=== PATIENT | female | born 1970 | race African-American/Black ===

== ENCOUNTER 2017-06-12 15:10 | Inpatient (IN) | payer BC, OTHER ==
[~2017-06-12] VITALS: Ht 165.1 cm; Wt 83.9 kg
--- NOTE | ~2017-06-12 | EKG ---
[place] [address] [facility] [employer] [address] ELECTROCARDIOGRAM REPORT Name: JAMIR DAWKINS Room #: 427-P [facility] IN M.R.#: [id number] Admission: 06/12/17 Attend Phys: Calvin Blandon Discharge: 06/14/17 Date of : 72 Report #: [id number] THIS REPORT FOR: //name// [facility] ED Test Date: 2017-06-12 Test Time: 15:46:25 Pat Name: JAMIR DAWKINS Department: Room: 427 Gender: F Corporate Controller: BIJU : 1970 Requested By: Jay Samuel Order Number: [id number] MD: Bipin Brand Measurements Intervals Elliott Rate: 117 P: 17 AR: 140 QRS: 60 QRSD: 81 T: 11 QT: 349 QTc: 487 Interpretive Statements Sinus tachycardia RSR' in V1 or V2; cannot rule out Brugada syndrome Borderline prolonged QT interval Baseline wander in lead(s) II,III,aVL,aVF,V3 No previous ECG available for comparison Electronically Signed On 06-15-2017 7:18:27 CDT by Bipin Brand [email or web address] <ELECTRONICALLY SIGNED> By: Bipin Brand MD, [facility] 06/15/17 0718 [id number] Bipin Brand MD, [facility] /EPI
[2017-06-12 15:26] VITALS: BP 113/71
[2017-06-12 15:53] LABS: ABSOLUTE NEUTROPHILS 6.7 thou/uL (1.4-8.2); BASOPHILS 0.3 % (0.0-2.0); HEMATOCRIT 33.6 % (37.0-47.0); HEMOGLOBIN 11.8 gm/dL (12.0-15.0); LYMPHOCYTES 9.2 % (24.0-44.0); MCH 28.3 pg (26.0-34.0); MCHC 35.1 g/dL (28.0-37.0); MCV 80.6 fL (80.0-100.0); MONOCYTES 7.7 % (1.0-8.0); PLATELET COUNT 125 thou/uL (150-400); POLYS 82.8 % (36.0-66.0); RBC 4.16 mil/uL (4.20-5.00); RDW 15.6 % (10.5-14.5); WBC 8.1 thou/uL (4.0-11.0)
[2017-06-12 15:53] LABS: URINE BLOOD 3+ (Negative); URINE CLARITY CLOUDY; URINE COLOR YELLOW; URINE GLUCOSE-RANDOM* NEGATIVE (Negative); URINE KETONES 1+ (Negative); URINE LEUKOCYTES 1+ (Negative); URINE NITRITE NEGATIVE (Negative); URINE PROTEIN (DIPSTICK) 2+ (Negative); URINE SPECIFIC GRAVITY 1.025 (1.005-1.035)
[2017-06-12 15:59] LABS: ICTOTEST (BILI CONFIRMATORY) Negative (Negative); URINE BILIRUBIN NEGATIVE (Negative)
[2017-06-12 16:00] LABS: SQUAMOUS >10 Many /LPF (0-3)
[2017-06-12 16:01] LABS: AMORPHOUS URATES Moderate /LPF (None Seen); BACTERIA 1-9 Few /HPF (None Seen); CASTS None Seen /LPF (None Seen); URINE RBC 0-2 Rare /HPF (0-2); URINE WBC 6-15 Few /HPF (0-5)
[2017-06-12 16:01] LABS: CALCIUM 8.4 mg/dL (8.5-10.1); CREATININE 1.8 mg/dL (0.6-1.0)
[2017-06-12 16:03] LABS: POTASSIUM 2.6 mmol/L (3.5-5.1)
[2017-06-12 16:06] LABS: ALBUMIN 2.7 g/dL (3.4-5.0); TOTAL BILIRUBIN 1.7 mg/dL (<0.1-1.0); TOTAL PROTEIN 7.1 g/dL (6.4-8.2)
[2017-06-12 17:10] LABS: CHOLESTEROL 164 mg/dL (<200); HDL CHOLESTEROL 13 mg/dL (>40); LDL CHOLESTEROL 106 mg/dL (<100); TC:HDL 12.6 Ratio (Not establshd); TRIGLYCERIDE 225 mg/dL (<150); VLDL 45 mg/dL (<40)
[2017-06-12 17:13] LABS: SERUM ASSESSMENT Clear
[2017-06-12 17:36] LABS: TSH 0.929 uIU/mL (0.358-3.740)
[2017-06-12 18:00] VITALS: BP 94/58
[2017-06-12 18:47] VITALS: BP 94/58
[2017-06-12 20:00] VITALS: BP 106/66
[2017-06-13 04:30] VITALS: BP 106/68
[2017-06-13 05:58] LABS: HEMATOCRIT 30.2 % (37.0-47.0); HEMOGLOBIN 10.5 gm/dL (12.0-15.0); MCH 28.7 pg (26.0-34.0); MCV 82.2 fL (80.0-100.0); RBC 3.67 mil/uL (4.20-5.00); WBC 6.7 thou/uL (4.0-11.0)
[2017-06-13 06:04] LABS: CALCIUM 7.8 mg/dL (8.5-10.1); CREATININE 1.4 mg/dL (0.6-1.0); POTASSIUM 3.1 mmol/L (3.5-5.1)
[2017-06-13 06:10] LABS: ALBUMIN 2.1 g/dL (3.4-5.0); MAGNESIUM 2.7 mg/dL (1.8-2.4); PHOSPHORUS 2.6 mg/dL (2.5-4.9); TOTAL PROTEIN 6.1 g/dL (6.4-8.2)
[2017-06-13 07:12] VITALS: BP 86/56
[2017-06-13 07:55] VITALS: BP 105/76
[2017-06-13 09:10] LABS: HAV IgM AB (ANTI-HAV IgM) Negative (Negative); HEPATITIS B SURFACE AG Negative (Negative); HEPATITIS C VIRUS AB <0.1 (0.0-0.9)
[2017-06-13 13:30] LABS: % SATURATION 10 % (20-39); IRON 25 ug/dL (50-170); TIBC 243 ug/dL (250-450)
[2017-06-13 13:44] VITALS: BP 105/76
[2017-06-13 15:25] VITALS: BP 121/82
[2017-06-13] MEDS ORDERED: CEFUROXIME250 MG PO (16:18)
[2017-06-13 20:07] LABS: IgG 710 mg/dL (700-1600)
[2017-06-13 20:51] VITALS: BP 116/72
[2017-06-14 05:31] VITALS: BP 106/73
[2017-06-14 07:15] VITALS: BP 106/80
[2017-06-14] MEDS ORDERED: CEFUROXIME250 MG PO (09:52)
[2017-06-14] MEDS ORDERED: HYDROCODONE-AP1 EAC6 PO (09:52)
[2017-06-14 13:09] LABS: CERULOPLASMIN 45.7 mg/dL (19.0-39.0)
[2017-06-15 09:09] LABS: ANA INTERPRETATION Positive (Negative)
== END 2017-06-14 15:07 | disposition home or self-care (01) | DRG 872 ==
LOC: ER 15:10 → 4E 16:55 → EROBS 16:55 → 4E 19:03 → EDTRNSPTSTS 06-14 14:00 → ENTRNSPT 06-14 14:00 → 4E 06-14 15:07
PROVIDERS: Hospitalist; Nurse Practitioner
DX: A41.9 Sepsis, unspecified organism (principal); N10 Acute pyelonephritis; E87.6 Hypokalemia; E83.42 Hypomagnesemia; E86.0 Dehydration; D69.6 Thrombocytopenia, unspecified; D25.9 Leiomyoma of uterus, unspecified
CPT/HCPCS: 10183